=== PATIENT | female | born 1990 | race Asian ===

== ENCOUNTER → 2022-12-22 | Outpatient (CLI) | payer SELFPAY ==
[2022-12-22 14:02] LABS: TOTAL PROTEIN,RANDOM URINE 38.9 MG/DL (0.0-14.0)
[2022-12-22 14:04] LABS: ALBUMIN 2.7 G/DL (3.2-5.2); ALKALINE PHOSPHATASE 137 U/L (46-116); ALT/SGPT 24 U/L (7.0-40); AST/SGOT 12 U/L (<34); BILIRUBIN,TOTAL 0.3 MG/DL (0.3-1.2); BLOOD UREA NITROGEN 13 MG/DL (9-23); CALCIUM LEVEL 8.7 MG/DL (8.5-10.1); CARBON DIOXIDE LEVEL 22 MMOL/L (20-31); CHLORIDE LEVEL 106 MMOL/L (98-107); CREATININE FOR GFR 0.66 MG/DL (0.55-1.30); GLOMERULAR FILTRATION RATE > 60.0 (>60); GLUCOSE, FASTING 120 MG/DL (60-100); POTASSIUM SERUM 3.8 MMOL/L (3.5-5.1); SODIUM LEVEL 138 MMOL/L (136-145); TOTAL PROTEIN 5.9 G/DL (5.7-8.2)
== END ==
LOC: M PLALAB 10:57
PROVIDERS: ATTEND Advanced Practice Midwife
DX: Q61.3 Polycystic kidney, unspecified (principal)

== ENCOUNTER → 2022-12-22 | Outpatient (REF) | payer OTHER | LOC: M PLALAB 10:26 | PROVIDERS: ATTEND Advanced Practice Midwife | DX: Z36.85 Encounter for antenatal screening for Streptococcus B (principal) ==

== ENCOUNTER 2023-01-03 15:34 | Outpatient (CLI) | payer OTHER, SELFPAY ==
[~2023-01-03] VITALS: Ht 162.6 cm; Wt 100.1 kg
[2023-01-03] VITALS (7 sets, daily range): BP systolic 105–143; BP diastolic 56–85
[2023-01-03] MEDS ORDERED: PREN1CHW PO (15:44)
[2023-01-03] MEDS ORDERED: HOME MED LIST COMPLETE! XX SCH (15:50)
[2023-01-03 16:20] LABS: HEMATOCRIT 35.8 % (36.0-47.0); HEMOGLOBIN 11.8 g/dl (12.0-15.5); MEAN CORPUSCULAR HEMOGLOBIN 27.6 pg (27.0-33.0); MEAN CORPUSCULAR VOLUME 83.6 fl (80.0-96.0); PLATELET COUNT, AUTOMATED 181 10^3/uL (150-450); RED BLOOD COUNT 4.28 10^6/uL (4.00-5.40); WHITE BLOOD COUNT 11.2 10^3/uL (4.0-10.0)
[2023-01-03 16:45] LABS: URIC ACID 4.3 MG/DL (3.1-7.8)
[2023-01-03 16:48] LABS: ALT/SGPT 17 U/L (7.0-40); AST/SGOT 11 U/L (<34); BILIRUBIN,TOTAL 0.4 MG/DL (0.3-1.2); CREATININE FOR GFR 0.59 MG/DL (0.55-1.30); GLOMERULAR FILTRATION RATE > 60.0 (>60); LDH LACTATE DEHYDROGENASE 173 U/L (120-246)
== END 2023-01-03 17:30 | disposition home or self-care (01) ==
LOC: M LDO 15:34
PROVIDERS: ATTEND Advanced Practice Midwife
DX: O16.3 Unspecified maternal hypertension, third trimester (principal); O34.218 Maternal care for other type scar from previous cesarean delivery; Z3A.38 38 weeks gestation of pregnancy
CPT/HCPCS: 36415; 59025; 82247; 82565; 82570; 83615; 84156; 84450; 84460; 84550; 85027; G0463

== ENCOUNTER → 2023-01-03 | Outpatient (CLI) | payer SELFPAY ==
[~2023-01-03] MED LIST: PREN1CHW PO
== END ==
LOC: EDBD 13:25 → M LAB 13:25
PROVIDERS: ATTEND Advanced Practice Midwife
DX: O99.713 Diseases of the skin and subcutaneous tissue complicating pregnancy, third trimester (principal)